=== PATIENT | female | born 1995 | race African-American/Black ===

== ENCOUNTER 2021-07-16 10:28 | Emergency (ER) | payer BC, MEDICAID ==
[~2021-07-16] VITALS: Ht 165.1 cm; Wt 70.5 kg
[2021-07-16 10:58] VITALS: TEMP 98.4
[2021-07-16] MEDS ORDERED: BUSPIRONE HCL7.5 MG PO (11:21)
[2021-07-16] MEDS ORDERED: VALTREX 50500 MG/TAB PO (11:22)
[2021-07-16 11:26] LABS: COLLECTION METHOD CLEAN CATCH
[2021-07-16 11:29] LABS: BASO # 0.1 K/mm3 (0.0-0.2); BASO % 0.9 % (0.0-2.0); EOS # 0.2 K/mm3 (0.0-0.7); GRAN # 2.5 K/mm3 (1.4-6.5); GRAN % 46.4 % (42.2-75.2); HEMATOCRIT 41.5 % (37.0-47.0); HEMOGLOBIN 13.7 g/dl (12.5-16.0); LYMPH # 2.2 K/mm3 (1.2-3.4); LYMPH % 40.5 % (20.0-51.0); MEAN CELL VOLUME 92 fl (80.0-100.0); MEAN CORPUSCULAR HEMOGLOBIN 30 pg (27-31); MEAN CORPUSCULAR HGB CONC 33 g/dl (33.0-37.0); MEAN PLATELET VOLUME 10.2 fl (7.4-10.4); MONO # 0.5 K/mm3 (0.1-0.6); PLATELET COUNT 274 K/mm3 (130-400); REDCELL DISTRIBUTION WIDTH-CV 12.7 % (11.5-14.5)
[2021-07-16 11:32] LABS: MUCOUS Present (NOT PRESENT); PH 6 (5-8); URINE APPEARANCE Hazy (CLEAR/HAZY); URINE BACTERIA Rare /hpf (NONE SEEN); URINE BILIRUBIN Negative (NEGATIVE); URINE BLOOD Negative (NEGATIVE); URINE COLOR Yellow (YELLOW); URINE GLUCOSE Negative (NEGATIVE); URINE KETONE Negative (NEGATIVE); URINE LEUKOCYTE ESTERASE Negative (NEGATIVE); URINE NITRATE Negative (NEGATIVE); URINE PROTEIN(semi-quant) Negative (NEGATIVE); URINE RBC 0-2 /hpf (0-2); URINE UROBILINOGEN Negative (NEGATIVE)
[2021-07-16 12:20] LABS: ALBUMIN 4.3 gm/dL (3.5-5.0); BILIRUBIN,TOTAL 0.6 mg/dL (0.2-1.2); CALCIUM 9.1 mg/dL (8.4-10.2); CREATININE, serum 0.94 mg/dL (0.57-1.11); POTASSIUM 3.9 mmol/L (3.5-4.5); TOTAL PROTEIN 8.6 gm/dL (6.2-8.1)
[2021-07-16] MEDS ORDERED: BENTYL 10MG10 MG/CAP PO (14:54)
[2021-07-16] MEDS ORDERED: PEPCID 20MG TAB20 MG PO (14:54)
[2021-07-16] MEDS ORDERED: ZOFRAN ODT4 MG PO (14:54)
[2021-07-16 15:30] VITALS: BP 133/85; PULSE 75
== END 2021-07-16 15:33 | disposition home or self-care (01) ==
LOC: COL.ER 10:28
PROVIDERS: Emergency Medicine
DX: R10.11 Right upper quadrant pain (principal); Z32.02 Encounter for pregnancy test, result negative; Z28.310 Unvaccinated for COVID-19
CPT/HCPCS: J0696; J1885; J2405; J3010; J7120; Q9967